=== PATIENT | female | born 1960 | race Asian ===

== ENCOUNTER 2023-08-31 10:41 | Outpatient (CLI) | payer OTHER | END 2023-08-31 10:42 | disposition home or self-care (01) | LOC: CSHULT 10:41 | PROVIDERS: ATTEND Internal Medicine | DX: R10.9 Unspecified abdominal pain (principal); R11.0 Nausea | CPT/HCPCS: 76700; 76856 ==

== ENCOUNTER 2024-08-31 09:57 | Outpatient (CLI) | payer MEDICARE | END 2024-08-31 09:58 | disposition home or self-care (01) | LOC: CSHMAMMO 09:57 | PROVIDERS: ATTEND Family Medicine | DX: Z12.31 Encounter for screening mammogram for malignant neoplasm of breast (principal); M81.0 Age-related osteoporosis without current pathological fracture; M85.80 Other specified disorders of bone density and structure, unspecified site | CPT/HCPCS: 77063; 77067; 77080 ==